=== PATIENT | male | born 1975 | race Caucasian/White ===

== ENCOUNTER 2017-02-19 16:11 | Outpatient (CLI) | END 2017-02-19 16:12 | disposition home or self-care (01) | LOC: LAB 16:11 | PROVIDERS: ATTEND Internal Medicine | DX: R88.8 Abnormal findings in other body fluids and substances (principal); R19.7 Diarrhea, unspecified | CPT/HCPCS: 87015; 87045; 87493; 87899 ==

== ENCOUNTER 2018-07-23 07:01 | Day surgery (SDC) ==
[2018-07-23] MEDS ORDERED: LIDOCAINE 1% 20 ML MDV ID STA (07:30)
[2018-07-23 07:45] VITALS: TEMP 97.9
[2018-07-23] MEDS ORDERED: LIDOCAINE HCL 2% LUER-JET ONE (08:30)
[2018-07-23] MEDS ORDERED: SUBLIMAZE ONE (08:30)
[2018-07-23] MEDS ORDERED: VERSED ONE (08:30)
[2018-07-23] MEDS ORDERED: DIPRIVAN 20 ML VIAL IVP ONE (08:30)
[2018-07-24 08:07] VITALS: BP 132/78
--- NOTE | 2018-07-24 09:54 | OP ---
INDICATIONS FOR PROCEDURE: 43 year old gentleman presents for colonoscopy exam. He is also scheduled for endoscopy. He is scheduled for a screening colon exam for family history of colon cancer involving his father at age 45. The patient has a remote history of adenomatous polyps over 10 years ago. The last colonoscopy 5 years ago was unremarkable. He also presents for endoscopy evaluation for intermittent epigastric discomfort for over one year. MEDICATIONS: SEE ANESTHESIA NOTES. PROCEDURE: ENDOSCOPY. ALBERTO BIOPSY COLONOSCOPY REPORT: The risks, benefits, alternatives and limitations were discussed in detail with the patient. Informed consent was obtained. After adequate sedation was achieved, the video endoscope was introduced in the posterior pharynx and esophagus under direct vision and easily advanced down to the second portion of the duodenum. I then slowly withdrew. The duodenal mucosa appeared unremarkable as did the duodenal bulb. The antrum body is relatively unremarkable. The scope was retroflexed to look at the cardia and fundus which was unremarkable. The scope was anteflexed and withdrawn back through the esophagus which was unremarkable. I obtained biopsies from the antrum body for H.Pylori testing. The patient tolerated the procedure well with stable vital signs and pulse oximetry throughout. The patient's bed was turned. A digital rectal exam revealed good tone, no masses. The colonoscope was introduced into the rectum and advanced under direct visual guidance to the cecum. The cecum was identified by the appendiceal orifice and IC valve. I then slowly withdrew the scope in circumferential manner and examined the mucosa quite carefully. I was able to retroflex the scope in the right colon and the left colon to increase visualization. The prep was good. The colonic mucosa was unremarkable in it's entire length including on retroflex view of the anal canal. The withdraw time was 6 minutes and 49 seconds. The patient tolerated the procedure well with stable vital signs and pulse oximetry throughout. IMPRESSION: 1. Normal upper endoscopy exam 2. Normal colonoscopy exam RECOMMENDATIONS: 1. Await H. Pylori results 2. High fiber low fat diet 3. We will see him back in the office as needed 4. Recommend screening colon examination again in 5 years based on his family history or sooner if signs or symptoms would indicate otherwise. CC: Dr. Marco CASTILLO
== END 2018-07-23 09:35 | disposition home or self-care (01) ==
LOC: SURG 07:01
PROVIDERS: ATTEND Internal Medicine Gastroenterology
DX: Z80.0 Family history of malignant neoplasm of digestive organs (principal); Z86.010 Personal history of colon polyps; R10.13 Epigastric pain
CPT/HCPCS: 87339